=== PATIENT | male | born 1985 | race Caucasian/White ===

== ENCOUNTER 2017-02-13 02:30 | Inpatient (IN) | payer MEDICAID, OTHER ==
[2017-02-13] MEDS ORDERED: Sodium Chloride 0.9% 1,000 ML IV ONE ×2 (02:40→05:37)
[2017-02-13 02:51] LABS: BASO % 0.4 % (0.0-2.0); EOS # 0.1 K/uL (0.0-0.7); EOS % 0.9 % (0.0-4.0); HEMATOCRIT 46.6 % (35.0-51.0); LYMPH # 2.3 K/uL (1.0-4.3); LYMPH % 20.4 % (20.0-40.0); MEAN CELL VOLUME 85.9 fL (80.0-94.0); MEAN CORPUSCULAR HEMOGLOBIN 29.1 pg (27.0-31.0); MEAN CORPUSCULAR HGB CONC 33.8 g/dL (33.0-37.0); MEAN PLATELET VOLUME 8.2 fL (7.2-11.7); MONO # 0.7 K/uL (0.0-0.8); MONO % 6.1 % (0.0-10.0); RED CELL DISTRIBUTION WIDTH 13.4 % (11.5-14.5); WHITE BLOOD COUNT 11.4 K/uL (4.8-10.8)
[2017-02-13] MEDS ORDERED: Sodium Chloride 0.9% 1,000 ML ONE ×2 (02:51→05:56)
[2017-02-13] MEDS ORDERED: Morphine 4 MG/ML VIAL ONE ×2 (02:52→05:55)
[2017-02-13 02:56] LABS: RBC URINE 1 /hpf (0-3); URINE BILIRUBIN NEGATIVE (NEGATIVE); URINE BLOOD NEGATIVE (NEGATIVE); URINE COLOR Yellow (YELLOW); URINE GLUCOSE (UA) NORMAL (Normal); URINE KETONE NEGATIVE (NEGATIVE); URINE LEUKOCYTE ESTERASE NEG Leu/uL (Negative); URINE PROTEIN NEGATIVE (NEGATIVE); URINE UROBILINOGEN NORMAL mg/dL (0.2-1.0)
[2017-02-13 02:57] LABS: CHLORIDE 95 mmol/L (98-107)
[2017-02-13 02:58] LABS: POTASSIUM 3.5 mmol/L (3.6-5.2); SODIUM 138 mmol/L (132-148)
[2017-02-13 03:00] LABS: ALB/GLOB RATIO 1.5 (1.0-2.1); ALKALINE PHOSPHATASE 84 U/L (38-126); ALT/SGPT 32 U/L (21-72); AST/SGOT 29 U/L (17-59); BILIRUBIN,TOTAL 0.6 mg/dL (0.2-1.3); BLOOD UREA NITROGEN 15 mg/dL (9-20); CARBON DIOXIDE 27 mmol/L (22-30); GFR AFRICAN-AMERICAN > 60; TOTAL PROTEIN 7.9 g/dL (6.3-8.3)
[2017-02-13 03:01] LABS: CALCIUM 9.3 mg/dl (8.6-10.4); GLUCOSE,RANDOM 108 mg/dL (75-110)
[2017-02-13] MEDS ORDERED: HYDROmorphone 1 mg/ml ISec IVP STA (03:32)
[2017-02-13] MEDS ORDERED: HYDROmorphone 1 mg/ml ISec ONE (03:35)
[2017-02-13] MEDS ORDERED: Iodixanol 320 MG/ML 100 ML BOTTLE IV ONE (03:39)
--- NOTE | 2017-02-13 05:09 | C.PDOC ---
History Of Present Illness 31 year old patient, with a past medical history of hypertension, presents to the ED complaining of lower abdominal pain for the past several hours. The pain is primarily in the RLQ, and is constant and nonradiating. Patient has never had prior similar symptoms. He denies nausea, vomiting, diarrhea, fever, dysuria/hematuria, flank pain. Time Seen by Provider: 02/13/17 02:31 Chief Complaint (Nursing): Abdominal Pain History Per: Patient History/Exam Limitations: no limitations Onset/Duration Of Symptoms: Hrs (several hours) Current Symptoms Are (Timing): Still Present Context: Other Severity: Severe Pain Scale Rating Of: 7 Location Of Pain/Discomfort: RLQ (greater), LLQ Radiation Of Pain To:: None Quality Of Discomfort: "Pain" Exacerbating Factors: None Alleviating Factors: None Past Medical History Reviewed: Historical Data, Nursing Documentation, Vital Signs Vital Signs: Last Vital Signs Temp 98.0 F 02/14/17 09:44 Pulse 73 02/14/17 13:03 Resp 20 02/14/17 13:03 BP 111/70 02/14/17 09:44 Pulse Ox 96 02/14/17 09:44 - Medical History PMH: HTN - [facility] Procedures DRAINAGE OF PELVIC CAVITY, PERCUTANEOUS ENDOSCOPIC APPROACH (02/13/17) RESECTION OF APPENDIX, PERCUTANEOUS ENDOSCOPIC APPROACH (02/13/17) Family History: States: No Known Family Hx - Social History Hx Alcohol Use: No Hx Substance Use: No - Immunization History Hx Tetanus Toxoid Vaccination: Yes Hx Influenza Vaccination: No Hx Pneumococcal Vaccination: No Review Of Systems Except As Marked, All Systems Reviewed And Found Negative. Constitutional: Negative for: Fever Cardiovascular: Negative for: Chest Pain, Palpitations Respiratory: Negative for: Cough, Shortness of Breath Gastrointestinal: Positive for: Abdominal Pain (lower right > lower left). Negative for: Nausea, Vomiting, Diarrhea Genitourinary: Negative for: Dysuria, Hematuria Physical Exam - Physical Exam Appears: Non-toxic, No Acute Distress, Other (tearful, in moderate to severe pain) Skin: Warm, Dry Head: Normacephalic Eye(s): bilateral: Normal Inspection Oral Mucosa: Moist Neck: Supple Cardiovascular: Rhythm Regular Respiratory: Normal Breath Sounds, No Rales, No Rhonchi, No Wheezing Gastrointestinal/Abdominal: Bowel Sounds, Soft, Tenderness ((+) RLQ, suprapubic , LLQ pain (greatest in RLQ)), No Distention, Guarding, No Rebound, Other ((+) McBurney's) Back: Normal Inspection, No CVA Tenderness Extremity: Normal ROM Neurological/Psych: Oriented x3 Gait: Steady ED Course And Treatment - Laboratory Results Result Diagrams: 02/14/17 07:58 02/14/17 07:58 ECG: Interpreted By Me, Viewed By Me (NSR 86 bpm, normal axis, no acute ST/T wave changes) ECG Interpretation: Normal O2 Sat by Pulse Oximetry: 97 (RA) Pulse Ox Interpretation: Normal - CT Scan/US abdomen/pelvis ct Other Rad Studies (CT/US): Read By Radiologist (Khanh Chung MD), Radiology Report Reviewed CT/US Interpretation: EXAM: CT Abdomen and Pelvis With Intravenous Contrast. CLINICAL HISTORY: 31 years old, male; Pain; Abdominal pain; Additional info: Rlq pain, R/O appendicitis. TECHNIQUE: Axial computed tomography images of the abdomen and pelvis with intravenous contrast. This CT. exam was performed using one or more of the following dose reduction techniques: automated. exposure control, adjustment of the mA and/or kV according to patient size, and/ or use of iterative. reconstruction technique. Coronal and sagittal reformatted images were created and reviewed. CONTRAST: 320 mL of visipaque administered intravenously. COMPARISON: No relevant prior studies available. FINDINGS: Lower thorax: There is minimal bibasilar atelectasis. ABDOMEN: Liver: There are no focal liver lesions present. There is a diffuse decrease in hepatic parenchymal. density, consistent with fatty infiltration. Gallbladder and bile ducts: The gallbladder is normal. No calcified stones. No ductal dilation. Pancreas: The pancreas is normal. No ductal dilation. Spleen: The spleen is normal. Adrenals: The adrenal glands are normal. Kidneys and ureters : The kidneys are normal. No hydronephrosis. Stomach and bowel: The stomach is normal. Colonic constipation is present. There is no evidence. of intestinal obstruction. No mucosal thickening. Appendix: There is an abnormal appendix in the right lower quadrant which measures 8 mm and. demonstrates periappendiceal stranding. Finding is compatible with early or mild appendicitis. No. evidence of perforation or abscess. PELVIS: Bladder: Bladder is decompressed. Reproductive: The prostate gland and seminal vesicles are normal. ABDOMEN and PELVIS: Intraperitoneal space: There is no evidence of free intraperitoneal fluid. There is no free. intraperitoneal air. Bones/joints: No acute fracture. No dislocation. Soft tissues: Unremarkable. Vasculature: The aorta is normal. No abdominal aortic aneurysm. Lymph nodes: There is no evidence of lymphadenopathy. IMPRESSION: There is an abnormal appendix in the right lower quadrant which measures 8 mm and. demonstrates periappendiceal stranding. Finding is compatible with early or mild. appendicitis. No evidence of perforation or abscess. Progress Note: Blood work, CT scan abd/pelvis ordered and reviewed. Patient given IV morphine, IV Zofran and IV NS bolus. 6:35am- Multiple pages placed to surgery resident pager by me, still pending call back. Patient currently resting comfortably, pain has improved. 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 Surgery resident paged, pending call back. Disposition - Disposition Disposition: HOSPITALIZED Disposition Time: 05:16 Condition: STABLE - Clinical Impression Clinical Impression: Acute appendicitis - Scribe Statement The provider has reviewed the documentation as recorded by the Whitney Henriquez Provider Attestation: All medical record entries made by the Sandipibmichelle were at my direction and personally dictated by me. I have reviewed the chart and agree that the record accurately reflects my personal performance of the history, physical exam, medical decision making, and the department course for this patient. I have also personally directed, reviewed, and agree with the discharge instructions and disposition. Decision To Admit - Pt Status Changed To: Hospital Disposition Of: Inpatient - Admit Certification Admit to Inpatient:: After my assessment, the patient will require hospitalization for at least two midnights. This is because of the severity of symptoms shown, intensity of services needed, and/or the medical risk in this patient being treated as an outpatient. - InPatient: Physician Admission Certification:: see notes - . Bed Request Type: Regular Admitting Physician: Carter Chan Patient Diagnosis: Acute appendicitis
--- NOTE | 2017-02-13 05:10 | CT ---
EXAM: CT Abdomen and Pelvis With Intravenous Contrast CLINICAL HISTORY: 31 years old, male; Pain; Abdominal pain; Additional info: Rlq pain, R/O appendicitis TECHNIQUE: Axial computed tomography images of the abdomen and pelvis with intravenous contrast. This CT exam was performed using one or more of the following dose reduction techniques: automated exposure control, adjustment of the mA and/or kV according to patient size, and/or use of iterative reconstruction technique. Coronal and sagittal reformatted images were created and reviewed. CONTRAST: 320 mL of visipaque administered intravenously. COMPARISON: No relevant prior studies available. FINDINGS: Lower thorax: There is minimal bibasilar atelectasis. ABDOMEN: Liver: There are no focal liver lesions present. There is a diffuse decrease in hepatic parenchymal density, consistent with fatty infiltration. Gallbladder and bile ducts: The gallbladder is normal. No calcified stones. No ductal dilation. Pancreas: The pancreas is normal. No ductal dilation. Spleen: The spleen is normal. Adrenals: The adrenal glands are normal. Kidneys and ureters: The kidneys are normal. No hydronephrosis. Stomach and bowel: The stomach is normal. Colonic constipation is present. There is no evidence of intestinal obstruction. No mucosal thickening. Appendix: There is an abnormal appendix in the right lower quadrant which measures 8 mm and demonstrates periappendiceal stranding. Finding is compatible with early or mild appendicitis. No evidence of perforation or abscess. PELVIS: Bladder: Bladder is decompressed. Reproductive: The prostate gland and seminal vesicles are normal. ABDOMEN and PELVIS: Intraperitoneal space: There is no evidence of free intraperitoneal fluid. There is no free intraperitoneal air. Bones/joints: No acute fracture. No dislocation. Soft tissues: Unremarkable. Vasculature: The aorta is normal. No abdominal aortic aneurysm. Lymph nodes: There is no evidence of lymphadenopathy. IMPRESSION: There is an abnormal appendix in the right lower quadrant which measures 8 mm and demonstrates periappendiceal stranding. Finding is compatible with early or mild appendicitis. No evidence of perforation or abscess.
[2017-02-13] MEDS ORDERED: Piperacillin/Tazobact 3.375 gm 100 ML IV STA (05:18)
[2017-02-13] MEDS ORDERED: Piperacillin/Tazobact 3.375 gm 100 ML IVPB ONE (05:24)
[2017-02-13] MEDS: Piperacillin/Tazobact 3.375 GM in Sodium Chloride 100 ML IVPB SCH ×3 (06:34→16:20)
--- NOTE | 2017-02-13 08:40 | RAD ---
PROCEDURE: CHEST RADIOGRAPH, 1 VIEW HISTORY: PREOP COMPARISON: None available. FINDINGS: LUNGS: Mild venous congestion with patchy bibasilar airspace opacities. PLEURA: No pneumothorax or pleural fluid seen. CARDIOVASCULAR: Normal. OSSEOUS STRUCTURES: No significant abnormalities. VISUALIZED UPPER ABDOMEN: Normal. OTHER FINDINGS: None. IMPRESSION: Mild venous congestion with patchy bibasilar airspace opacities.
--- NOTE | 2017-02-13 09:10 | CP.PCM.HP ---
<Nathaly Salazar - Last Filed: 02/13/17 10:27> History of Present Illness - History of Present Illness History of Present Illness: General Surgery Dr. Chan CC: RLQ pain HPI: 31 y/o [place]i-speaking M w/ PMHx of HTN and migraine presents w/ c/o sharp , RLQ pain. Pain began around 11pm in the LLQ and migrated to the RLQ. Pain is non-radiating and constant. Pt is not releived or exacerbated by anything. When pain did not resolve, pt decided to come to the ED for evaluation. Pt has never before had this pain. Pt denies F/C, CP, SOB, N/V, D/C, dysuria, hematuria. PMHx: see above Meds: Gabapentin 300mg PO BID; Lisinopril 2.5mg PO QD NKDA SHx: quit smoking 8yrs ago. denies EtOH, drug use FHx: noncontributory Present on Admission - Present on Admission Any Indicators Present on Admission: No Review of Systems - Review of Systems All systems: reviewed and no additional remarkable complaints except (that which stated in HPI) Past Patient History - Infectious Disease Hx of Infectious Diseases: None - Past Social History Smoking Status: Former Smoker - CARDIAC Hx Hypertension: Yes - PSYCHIATRIC Hx Substance Use: No - SURGICAL HISTORY Hx Surgeries: No - ANESTHESIA Hx Anesthesia: No Meds Allergies/Adverse Reactions: Allergies Allergy/AdvReac Type Severity Reaction Status Date / Time No Known Allergies Allergy Verified 02/13/17 02:39 Physical Exam - Constitutional Appears: Non-toxic, No Acute Distress - Head Exam Head Exam: NORMAL INSPECTION - Eye Exam Eye Exam: Normal appearance - ENT Exam ENT Exam: Mucous Membranes Moist - Respiratory Exam Respiratory Exam: NORMAL BREATHING PATTERN. absent: Accessory Muscle Use, Respiratory Distress - Cardiovascular Exam Cardiovascular Exam: REGULAR RHYTHM. absent: Bradycardia, Tachycardia - GI/Abdominal Exam GI & Abdominal Exam: Firm (RLQ), Guarding (voluntary), Tenderness (RLQ). absent : Rebound Additional comments: (+) McBurney's (+) Rosving's sign - Extremities Exam Extremities exam: Positive for: normal inspection - Neurological Exam Neurological exam: Alert, Oriented x3 - Psychiatric Exam Psychiatric exam: Normal Affect, Normal Mood - Skin Skin Exam: Dry, Intact, Normal Color, Warm Results - Vital Signs Recent Vital Signs: Last Vital Signs Temp 98.4 F 02/13/17 07:10 Pulse 93 H 02/13/17 07:10 Resp 20 02/13/17 07:10 BP 115/73 02/13/17 07:10 Pulse Ox 97 02/13/17 07:10 - Labs Result Diagrams: 02/13/17 02:46 02/13/17 02:46 Labs: Laboratory Results - last 24 hr 02/13/17 05:40 PT 11.5 INR 1.0 APTT 30 - Imaging and Cardiology CT scan - abdomen Status: Image reviewed by me, Report reviewed by me Chest x-ray Status: Image reviewed by me Assessment & Plan - Assessment and Plan (Free Text) Assessment: 31 y/o M w/ RLQ pain found to have appendicitis on CT - NPO - LR@125 - Zosyn 3.375mg - Zofran 4mg Q4 prn nausea/vomiting - Morphine 4mg Q4 prn pain - restart home meds tomorrow - OR for lap appy @3pm Pt discussed w/ Dr. Rocio Salazar DO PGY1 <Carter Chan - Last Filed: 02/13/17 21:28> Results - Vital Signs Recent Vital Signs: Last Vital Signs Temp 97.6 F 02/13/17 18:56 Pulse 77 02/13/17 18:56 Resp 20 02/13/17 18:56 BP 104/68 02/13/17 18:56 Pulse Ox 98 02/13/17 18:56 - Labs Result Diagrams: 02/13/17 02:46 02/13/17 02:46 Labs: Laboratory Results - last 24 hr 02/13/17 05:40 PT 11.5 INR 1.0 APTT 30 Attending/Attestation - Attestation I have personally seen and examined this patient.: Yes I have fully participated in the care of the patient.: Yes I have reviewed all pertinent clinical information: Yes Notes (Text): 02/13/17 21:27 Pt was seen and examined at bedside on 02/13/2017 Agree with above note and assessment Pt with Acute Appendicitis and Leukocytosis OR for Lap appendectomy possible Open Consent Plan d.w pt in detail Risk and benefit explained in detail.
--- NOTE | 2017-02-13 11:38 | CARD ---
APPROVED REPORT EKG Measurement Heart [id number] [place] [id number] <Conclusion> Normal sinus rhythm Normal ECG
[2017-02-13] MEDS ORDERED: Bupivacaine/Epi 0.25%-1:200,000 10 ml PF inj IJ ONE (15:52)
[2017-02-13] MEDS ORDERED: Lactated Ringer's 1,000 ML IV ONE ×2 (15:55→17:10)
[2017-02-13] MEDS ORDERED: Propofol 10 mg/ml Inj (20 ML) ONE ×2 (16:02→16:57)
[2017-02-13] MEDS ORDERED: Midazolam 2 MG/2 ML VIAL ONE (16:02)
[2017-02-13] MEDS ORDERED: Lidocaine 1% Inj (20ml) ONE (16:43)
[2017-02-13] MEDS ORDERED: HYDROmorphone 0.5 mg/0.5 ml ISec IVP PRN (16:45)
[2017-02-13] MEDS ORDERED: Rocuronium 10 mg/ml (5 ml) ONE (16:57)
[2017-02-13] MEDS ORDERED: Succinylcholine Chloride 20 mg/ml Syr (5 ml) IV ONE (16:57)
[2017-02-13] MEDS ORDERED: Neostigmine Methylsulfate 3mg/3ml Syringe IV ONE (17:08)
--- NOTE | 2017-02-13 17:34 | PCM.SURG1 ---
Surgeon's Initial Post Op Note - Surgeon's Notes Surgeon: Assembler Handbags: Dr. Salazar PGY1 Type of Anesthesia: General Endo Pre-Operative Diagnosis: appendicitis Operative Findings: see dictation Post-Operative Diagnosis: same Operation Performed: laparoscopic appendectomy Specimen/Specimens Removed: appendix Estimated Blood Loss: EBL {In ML}: 10 Blood Products Given: N/A Drains Used: No Drains Post-Op Condition: Good Date of Surgery/Procedure: 02/13/17 Time of Surgery/Procedure: 16:15
[2017-02-13] MEDS ORDERED: Oxycodone/Acetaminophen 5/325 mg Tab PO PRN (17:36)
[2017-02-13] MEDS ORDERED: Morphine 4 MG/ML VIAL IVP PRN (17:37)
[2017-02-13 18:49] VITALS: RESP 20
[2017-02-13] MEDS: Sodium Chloride 0.9% 1,000 ML IV SCH (18:54)
--- NOTE | 2017-02-13 22:39 | OP ---
PROCEDURE DATE: 02/13/2017 PREOPERATIVE DIAGNOSES: Acute appendicitis and leukocytosis. POSTOPERATIVE DIAGNOSES: 1. Acute appendicitis. 2. Pelvic purulent collection. 3. Leukocytosis. PROCEDURES DONE: 1. Laparoscopic appendectomy. 2. Laparoscopic drainage of pelvic collection, SURGEON: Carter Chan MD FAMILY SPECIALIST: Nathaly Salazar, PGY-1 resident ANESTHESIA: General endotracheal tube anesthesia. ESTIMATED BLOOD LOSS: Around 10 mL. DRAINS: None. PATHOLOGY: Appendix was sent for pathology. COMPLICATIONS: None. INTRAOPERATIVE FINDINGS: The patient had acute suppurative appendicitis with periappendicular as wel l as the pelvic purulent collection. INTRAOPERATIVE STEPS: This is a 31-year-old male who was diagnosed with acute appendicitis with leuk ocytosis, and patient was consented for laparoscopic appendectomy, possible open. Brought to the OR, placed supine on the operating table. After induction of the anesthesia, abdomen was prepped and dr aped in the usual sterile fashion. A supraumbilical transverse 1.5 cm incision was made. After inci sing skin and subcutaneous tissue, the fascia was incised in the line of incision. Chris port was p laced, pneumo was created. After creation of pneumoperitoneum, the 5 mm port was placed in suprapubi c region and the 12 mm port was placed in left lower quadrant. After the grasper and dissector were introduced, the patient found to have a small phlegmon of the appendix that was lysed and the appendi x was identified. The patient also had a periappendicular as well as a pelvic purulent collection. First, the mesoappendix was resected and the base of the appendix was resected with a HEATHER and hemosta sis was achieved. The patient had a purulent pelvic collection that as suctioned irrigated. After s uction irrigation of the pelvis as well as the right lower quadrant and suctioning of all the fluid, the rest of the peritoneal cavity grossly examined and it appeared normal, and the perihepatic suctio n irrigation was also done. After proper hemostasis, appendix was taken in EndoCatch bag, taken out through the umbilical port site and sent off the table for the pathology. The umbilical wound was cl osed in 2 layers, the fascia with 0 Vicryl interrupted suture and skin with a 4-0 Monocryl, and dry s terile dressing was applied. The patient tolerated the procedure well. Count of instruments and gau ze was correct. There was no apparent complication. The patient was extubated in the OR, sent to [facility] postanesthesia care unit in stable condition. Carter Chan MD cc: [id number] TT: 02/13/2017 22:38:30 wy
[2017-02-14] MEDS: Piperacillin/Tazobact 3.375 GM in Sodium Chloride 100 ML IVPB SCH ×2 (00:08→05:30)
[2017-02-14] MEDS: Sodium Chloride 0.9% 1,000 ML IV SCH (05:26)
[2017-02-14 08:03] LABS: BASO % 0.2 % (0.0-2.0); EOS # 0.1 K/uL (0.0-0.7); MEAN PLATELET VOLUME 8.3 fL (7.2-11.7); MONO # 0.6 K/uL (0.0-0.8); WHITE BLOOD COUNT 8.5 K/uL (4.8-10.8)
[2017-02-14 08:08] LABS: EOS % 0.8 % (0.0-4.0); LYMPH # 1.9 K/uL (1.0-4.3); LYMPH % 22.1 % (20.0-40.0); MEAN CELL VOLUME 87.1 fL (80.0-94.0); MEAN CORPUSCULAR HEMOGLOBIN 29.5 pg (27.0-31.0); MEAN CORPUSCULAR HGB CONC 33.9 g/dL (33.0-37.0); MONO % 7.2 % (0.0-10.0); RED CELL DISTRIBUTION WIDTH 13.1 % (11.5-14.5)
[2017-02-14 08:32] LABS: CHLORIDE 100 mmol/L (98-107)
[2017-02-14 08:33] LABS: POTASSIUM 3.8 mmol/L (3.6-5.2); SODIUM 137 mmol/L (132-148)
[2017-02-14 08:35] LABS: ALB/GLOB RATIO 1.4 (1.0-2.1); AST/SGOT 37 U/L (17-59); BILIRUBIN,TOTAL 0.9 mg/dL (0.2-1.3); BLOOD UREA NITROGEN 10 mg/dL (9-20); CARBON DIOXIDE 25 mmol/L (22-30); GFR AFRICAN-AMERICAN > 60; TOTAL PROTEIN 6.3 g/dL (6.3-8.3)
--- NOTE | 2017-02-14 08:35 | CP.PCM.PN ---
<Nathaly Salazar - Last Filed: 02/14/17 08:32> Subjective - Date & Time of Evaluation Date of Evaluation: 02/14/17 Time of Evaluation: 07:00 - Subjective Subjective: General Surgery Dr. Chan Pt S&E @bedside. Pt had laparoscopic appendectomy yesterday. Pt tolerated the procedure well w/ no complications. NAEO. only minimal pain. denies F/C, N/V, D/ C. Tolerating Regular diet Objective - Vital Signs/Intake and Output Vital Signs (last 24 hours): Temp Pulse Resp BP Pulse Ox 98.1 F 82 20 102/63 96 02/14/17 01:48 02/14/17 01:48 02/14/17 01:48 02/14/17 01:48 02/14/17 01:48 Intake and Output: 02/14/17 02/14/17 06:59 18:59 Intake Total 1000 Balance 1000 - Medications Medications: Current Medications Gabapentin (Neurontin) 300 mg PO BID POOJA Piperacillin Sod/Tazobactam (Sod 3.375 gm/ Sodium Chloride) 100 mls @ 200 mls/ hr IVPB Q6H POOJA Last Admin: 02/14/17 05:30 Dose: 200 mls/hr Morphine Sulfate (Morphine) 4 mg IVP Q4 PRN PRN Reason: Pain, severe (8-10) Last Admin: 02/13/17 20:18 Dose: 4 mg Ondansetron HCl (Zofran Inj) 4 mg IVP Q4 PRN PRN Reason: Nausea/Vomiting Oxycodone/Acetaminophen (Percocet 5/325 Mg Tab) 1 tab PO Q4H PRN PRN Reason: Pain, moderate (4-7) Stop: 02/16/17 17:37 Last Admin: 02/14/17 06:21 Dose: 1 tab - Labs Labs: 02/14/17 07:58 CMP Pending - Constitutional Appears: Non-toxic, No Acute Distress - Head Exam Head Exam: NORMAL INSPECTION - Eye Exam Eye Exam: Normal appearance - ENT Exam ENT Exam: Mucous Membranes Moist - Respiratory Exam Respiratory Exam: NORMAL BREATHING PATTERN. absent: Accessory Muscle Use, Respiratory Distress - GI/Abdominal Exam GI & Abdominal Exam: Distended (minimal), Soft, Tenderness (minimal TTP RLQ). absent: Guarding, Rebound - Neurological Exam Neurological Exam: Alert, Awake, Oriented x3 - Psychiatric Exam Psychiatric exam: Normal Affect, Normal Mood - Skin Skin Exam: Dry, Intact, Normal Color, Warm Assessment and Plan - Assessment and Plan (Free Text) Assessment: 31 y/o M POD#1 s/p Laparoscopic appendectomy - Cont Regular diet - Hep lock - D/C fluids - Percocet 1 Q4 prn Pain - Follow up in 1-2 weeks w/ Dr. Chan in Clinic Pt discussed w/ Dr. Rocio Salazar DO PGY1 <Carter Chan - Last Filed: 02/14/17 17:53> Objective - Vital Signs/Intake and Output Vital Signs (last 24 hours): Temp Pulse Resp BP Pulse Ox 98.0 F 73 20 111/70 96 02/14/17 09:44 02/14/17 13:03 02/14/17 13:03 02/14/17 09:44 02/14/17 09:44 Intake and Output: 02/14/17 02/14/17 06:59 18:59 Intake Total 1000 450 Balance 1000 450 - Labs Labs: 02/14/17 07:58 02/14/17 07:58 PT 11.5 SECONDS (9.7-12.2) 02/13/17 05:40 INR 1.0 02/13/17 05:40 APTT 30 SECONDS (21-34) 02/13/17 05:40 Attending/Attestation - Attestation I have personally seen and examined this patient.: Yes I have fully participated in the care of the patient.: Yes I have reviewed all pertinent clinical information, including history, physical exam and plan: Yes Notes (Text): 02/14/17 17:53 02/12/17 21:16 Pt was seen and examined at bedside on 02/14/17 Agree with above note and assessment
[2017-02-14 08:36] LABS: ALKALINE PHOSPHATASE 72 U/L (38-126); ALT/SGPT 51 U/L (21-72); CALCIUM 8.1 mg/dl (8.6-10.4); GLUCOSE,RANDOM 99 mg/dL (75-110)
[2017-02-14 09:45] VITALS: BP 111/70; PULSE 73; TEMP 98
[2017-02-18 18:15] VITALS: O2SAT 97
== END 2017-02-14 14:45 | disposition home or self-care (01) | DRG 343 ==
LOC: C.ER 02:30 → C.9E 05:16 → C.5T 11:09
PROVIDERS: ADMIT Surgery Surgical Critical Care; ATTEND Surgery Surgical Critical Care
PROC: 0W9J4ZZ Drainage of Pelvic Cavity, Percutaneous Endoscopic Approach (ICD-10-PCS; 2017-02-13)
PROC: 0DTJ4ZZ Resection of Appendix, Percutaneous Endoscopic Approach (ICD-10-PCS; principal; 2017-02-13 15:00)
DX: K35.89 Other acute appendicitis (principal); D72.829 Elevated white blood cell count, unspecified; I10 Essential (primary) hypertension; Z87.891 Personal history of nicotine dependence

== ENCOUNTER 2017-03-05 10:14 | Emergency (ER) | payer OTHER ==
[2017-03-05 10:29] VITALS: BP 137/79; PULSE 76; RESP 15; TEMP 97.8; O2SAT 98
[2017-03-05] MEDS ORDERED: Bacitracin 500 Units/gm Oint Foilpak UD TOP ONE (10:39)
[2017-03-05] MEDS ORDERED: Bacitracin 500 Units/gm Oint Foilpak UD ONE (10:41)
--- NOTE | 2017-03-05 10:41 | C.PDOC ---
History Of Present Illness 31 y/o male presents to the ED for evaluation of surgical wound. Patient is s/ p appendectomy on 02/13, was seen in medical clinic last week for suture removal/ wound check. He states he feels like there is a suture protruding out from one of the surgical sites, and he noticed a small amount of bleeding from the area. He denies fever/chills, pain, discharge. Time Seen by Provider: 03/05/17 10:32 Chief Complaint (Nursing): Suture/Staple Removal History Per: Patient History/Exam Limitations: no limitations Onset/Duration Of Symptoms: Hrs Current Symptoms Are (Timing): Still Present Quality Of Symptoms: denies: Painful, Itching, Swollen, Draining Severity: Mild Additional History Per: Patient Past Medical History Reviewed: Historical Data, Nursing Documentation, Vital Signs Vital Signs: Last Vital Signs Temp 97.8 F 03/05/17 10:27 Pulse 76 03/05/17 10:27 Resp 15 03/05/17 10:27 BP 137/79 03/05/17 10:27 Pulse Ox 98 03/05/17 12:46 - Medical History PMH: HTN Surgical History: Appendectomy - [facility] Procedures DRAINAGE OF PELVIC CAVITY, PERCUTANEOUS ENDOSCOPIC APPROACH (02/13/17) RESECTION OF APPENDIX, PERCUTANEOUS ENDOSCOPIC APPROACH (02/13/17) Family History: States: No Known Family Hx - Social History Hx Alcohol Use: No Hx Substance Use: No - Immunization History Hx Tetanus Toxoid Vaccination: Yes Hx Influenza Vaccination: No Hx Pneumococcal Vaccination: No Review Of Systems Except As Marked, All Systems Reviewed And Found Negative. Constitutional: Negative for: Fever, Chills Cardiovascular: Negative for: Chest Pain, Palpitations Respiratory: Negative for: Cough, Shortness of Breath Gastrointestinal: Negative for: Nausea, Vomiting, Abdominal Pain, Diarrhea Genitourinary: Negative for: Dysuria, Hematuria Skin: Positive for: Other (+suture removal from post-surgical site ) Physical Exam - Physical Exam Appears: Well, Non-toxic, No Acute Distress Skin: Normal Color, Warm, Dry Cardiovascular: Rhythm Regular Respiratory: Normal Breath Sounds, No Rales, No Rhonchi, No Wheezing Gastrointestinal/Abdominal: Normal Exam, Bowel Sounds, Soft, No Tenderness, No Guarding, No Rebound, Other (+suprapubic region: one small surgical wound with protruding small suture. Area is nontender, without erythema/swelling/discharge ) Extremity: Normal ROM Neurological/Psych: Oriented x3 Gait: Steady ED Course And Treatment O2 Sat by Pulse Oximetry: 98 (on RA) Pulse Ox Interpretation: Normal Progress Note: Small piece of suture protruding from wound cut off by me. Area appears to be healing well, without evidence of infection or dehiscence. Bacitracin and gauze dressing applied by ED nurse. Patient instructed to follow up with surgical clinic within 1 week, and he understands he should return to ED if he develops concerning symptoms. Reevaluation Time: 10:45 Reassessment Condition: Improved Disposition Counseled Patient/Family Regarding: Diagnosis, Need For Followup - Disposition Referrals: [facility] [Outside] [facility] [Outside] Disposition: HOME/ ROUTINE Disposition Time: 10:45 Condition: STABLE Additional Instructions: FOLLOW UP WITH YOUR SURGEON WITHIN 1 WEEK KEEP AREA CLEAN AND DRY RETURN TO ER IF SYMPOMS WORSEN Instructions: Acute Wound Care (ED) Print Language: WELSH - POA Present On Arrival: None - Clinical Impression Clinical Impression: Visit for wound check, Extruding suture - Scribe Statement The provider has reviewed the documentation as recorded by the Scribe (Stephanie Henriquez) Provider Attestation: All medical record entries made by the Scribe were at my direction and personally dictated by me. I have reviewed the chart and agree that the record accurately reflects my personal performance of the history, physical exam, medical decision making, and the department course for this patient. I have also personally directed, reviewed, and agree with the discharge instructions and disposition.
== END 2017-03-05 10:50 | disposition home or self-care (01) ==
LOC: C.ER 10:14
DX: Z48.01 Encounter for change or removal of surgical wound dressing (principal)